=== PATIENT | female | born 1945 | race Caucasian/White ===

== ENCOUNTER 2017-12-17 10:19 | Inpatient (IN) | payer MEDICARE, OTHER, MEDICAID ==
[2017-12-17 10:47] LABS: ADD MAN DIFF? NO
[2017-12-17 10:49] LABS: WHITE BLOOD COUNT 9.6 10^3/ul (4.8-10.8)
[2017-12-17 10:49] LABS: BASOPHILS % 0.4 % (0.0-2.0); EOSINOPHILS # 0.1 10^3/ul (0.0-0.5); EOSINOPHILS % 1.3 % (0.0-7.0); HEMOGLOBIN 12.6 g/dl (12.0-16.0); LYMPHOCYTES # 3.1 10^3/ul (0.8-2.9); LYMPHOCYTES % 32.6 % (15.0-51.0); MEAN CORPUSCULAR HEMOGLOBIN 30.3 pg (29.0-33.0); MEAN CORPUSCULAR HGB CONC 31.5 g/dl (32.0-37.0); MEAN CORPUSCULAR VOLUME 96.2 fl (82.0-101.0); MEAN PLATELET VOLUME 10.6 fl (7.4-10.4); MONOCYTE # 0.8 10^3/ul (0.3-0.9); MONOCYTES % 8.2 % (0.0-11.0); NEUTROPHIL # 5.5 10^3/ul (1.6-7.5); PLATELET COUNT 323 10^3/UL (140-415); RED BLOOD COUNT 4.16 10^6/ul (4.20-5.40); RED CELL DISTRIBUTION WIDTH 14.4 % (11.5-14.5)
[2017-12-17 11:04] LABS: ADD UMIC NO; UR ASCORBIC ACID NEGATIVE (NEGATIVE); UR BILIRUBIN (Dip) NEGATIVE (NEGATIVE); UR BLOOD (Dip) NEGATIVE (NEGATIVE); UR CLARITY SLIGHTLY CLOUDY (CLEAR); UR COLOR YELLOW (YELLOW); UR GLUCOSE (Dip) 2+ mg/dL (NEGATIVE); UR KETONES (Dip) NEGATIVE (NEGATIVE); UR LEUKOCYTE ESTERASE (Dip) NEGATIVE Leu/ul (NEGATIVE); UR NITRITE (Dip) NEGATIVE (NEGATIVE); UR RBC 0 /HPF (0-5); UR SPECIFIC GRAVITY (Dip) 1.012 (1.003-1.030); UR TOTAL PROTEIN (Dip) NEGATIVE (NEGATIVE); UR UROBILINOGEN (Dip) NEGATIVE (NEGATIVE); UR WBC 1 /HPF (0-5)
[2017-12-17] MEDS: SODIUM CHLORIDE 0.9% 1L BAG IV* (11:09)
[2017-12-17 11:12] LABS: INR 1.06; PROTIME 13.9 Sec (11.9-14.9); PT RATIO 1.1
[2017-12-17 11:14] LABS: PARTIAL THROMBOPLASTIN TIME 30.7 Sec (25.0-35.0)
[2017-12-17 11:58] LABS: POTASSIUM 5.2 mmol/L (3.5-5.1); SODIUM 141 mmol/L (135-144)
[2017-12-17 11:59] LABS: ALANINE AMINOTRANSFERASE 18 IU/L (13-69); ALBUMIN 3.7 g/dl (3.3-4.9); ALBUMIN/GLOBULIN RATIO 0.97; ALKALINE PHOSPHATASE 130 IU/L (42-121); ANION GAP 16 (8-16); ASPARTATE AMINO TRANSFERASE 34 IU/L (15-46); BILIRUBIN,INDIRECT 0.3 mg/dl (0-1.1); BILIRUBIN,TOTAL 0.3 mg/dl (0.2-1.3); BLOOD UREA NITROGEN 41 mg/dl (7-20); CALCIUM 8.9 mg/dl (8.4-10.2); CARBON DIOXIDE 17 mmol/L (21-31); CHLORIDE 113 mmol/L (97-110); CREATINE KINASE 75 IU/L (23-200); CREATININE 1.03 mg/dl (0.44-1.00); GLUCOSE 174 mg/dl (70-220); TOTAL PROTEIN 7.5 g/dl (6.1-8.1)
[2017-12-17 11:59] LABS: LACTIC ACID 1.6 mmol/L (0.5-2.0)
[2017-12-17 12:10] LABS: CK-MB 2.28 ng/ml (0.0-2.4)
[2017-12-17 12:14] LABS: TROPONIN-I < 0.012 ng/ml (0.000-0.120)
[2017-12-17 14:11] LABS: LACTIC ACID 1.2 mmol/L (0.5-2.0)
[2017-12-17] MEDS ORDERED: ACETAMINOPHEN 325 MG TAB PO (15:00)
[2017-12-17] MEDS ORDERED: ONDANSETRON 4 MG INJ IV (15:00)
[2017-12-17] MEDS: DEXTROSE 5%-0.45% NACL 1,000 ML IV (15:34)
[2017-12-17] MEDS ORDERED: DOCUSATE SODIUM 100 MG CAP PO (16:00)
[2017-12-17] MEDS ORDERED: MAGNESIUM HYDROXIDE 30ML CUP PO (16:00)
[2017-12-17] MEDS ORDERED: NACL 0.9% 3 ML SYG IV (16:00)
[2017-12-17 16:43] LABS: HEMOGLOBIN A1C 8.7 % (0-5.9)
[2017-12-17] MEDS ORDERED: GLUCOSE GEL 15 GRAM TUBE PO ×2 (17:00)
[2017-12-17] MEDS ORDERED: DEXTROSE 50% 50 ML SYRINGE IV ×2 (17:00)
[2017-12-17] MEDS ORDERED: GLUCAGON 1 MG INJ IM (17:00)
[2017-12-17] MEDS ORDERED: GLUCOSE GEL 15 GRAM TUBE BUCCAL (17:00)
[2017-12-17] MEDS: INSULIN ASPART [NOVOLOG] 3 ML PEN SC ×3 (18:00→21:00)
[2017-12-17] MEDS: CEFTRIAXONE 1 GM/50 ML (PMX) 50 ML IVPB (18:11)
[2017-12-17 22:45] LABS: LACTIC ACID 1.5 mmol/L (0.5-2.0)
[2017-12-17] MEDS: PREGABALIN 75 MG CAP PO (23:05)
[2017-12-17] MEDS: EZETIMIBE 10 MG TAB PO (23:05)
[2017-12-17] MEDS: RANOLAZINE (SR) 500 MG TAB PO (23:07)
[2017-12-17] MEDS: ATORVASTATIN 40 MG TAB PO (23:29)
[2017-12-17] MEDS: INSULIN GLARGINE [LANtus] 3 ML PEN SC (23:40)
[2017-12-18] MEDS: PANTOPRAZOLE (EC) 40 MG TAB PO (06:47)
[2017-12-18] MEDS: INSULIN ASPART [NOVOLOG] 3 ML PEN SC ×7 (07:55→20:39)
[2017-12-18 08:04] LABS: ADD MAN DIFF? NO
[2017-12-18 08:09] LABS: BASOPHIL # 0.1 10^3/ul (0.0-0.1); BASOPHILS % 0.4 % (0.0-2.0); EOSINOPHILS # 0.1 10^3/ul (0.0-0.5); EOSINOPHILS % 0.7 % (0.0-7.0); HEMATOCRIT 35.5 % (37.0-47.0); HEMOGLOBIN 11.4 g/dl (12.0-16.0); LYMPHOCYTES # 3.9 10^3/ul (0.8-2.9); LYMPHOCYTES % 31.9 % (15.0-51.0); MEAN CORPUSCULAR HEMOGLOBIN 30.2 pg (29.0-33.0); MEAN CORPUSCULAR HGB CONC 32.1 g/dl (32.0-37.0); MEAN CORPUSCULAR VOLUME 94.2 fl (82.0-101.0); MEAN PLATELET VOLUME 10.7 fl (7.4-10.4); MONOCYTE # 1.2 10^3/ul (0.3-0.9); NEUTROPHIL # 6.9 10^3/ul (1.6-7.5); NEUTROPHILS % 56.7 % (39.0-77.0); PLATELET COUNT 292 10^3/UL (140-415); RED BLOOD COUNT 3.77 10^6/ul (4.20-5.40); RED CELL DISTRIBUTION WIDTH 14.6 % (11.5-14.5)
[2017-12-18 08:09] LABS: WHITE BLOOD COUNT 12.2 10^3/ul (4.8-10.8)
[2017-12-18 08:35] LABS: ALBUMIN 3.2 g/dl (3.3-4.9); ANION GAP 14 (8-16); BLOOD UREA NITROGEN 39 mg/dl (7-20); CALCIUM 8.5 mg/dl (8.4-10.2); CARBON DIOXIDE 19 mmol/L (21-31); CHLORIDE 114 mmol/L (97-110); CREATININE 1.15 mg/dl (0.44-1.00); GLUCOSE 132 mg/dl (70-220); MAGNESIUM 1.8 mg/dl (1.7-2.5); PHOSPHORUS 3.5 mg/dl (2.5-4.9); POTASSIUM 5.2 mmol/L (3.5-5.1); SODIUM 142 mmol/L (135-144)
[2017-12-18] MEDS: RANOLAZINE (SR) 500 MG TAB PO ×2 (08:46→20:43)
[2017-12-18] MEDS: PRASUGREL HYDROCHLORIDE 10 MG TABLET PO (08:46)
[2017-12-18] MEDS: ASPIRIN 81 MG TAB PO (08:46)
[2017-12-18] MEDS: MULTIVITAMINS THERAPEUTIC TAB PO (08:47)
[2017-12-18] MEDS: PREGABALIN 75 MG CAP PO ×2 (08:47→20:43)
[2017-12-18] MEDS: VALSARTAN 160 MG TAB PO (08:55)
[2017-12-18] MEDS: HYDROCHLOROTHIAZIDE 25 MG TAB PO (08:55)
[2017-12-18] MEDS: ACETAMINOPHEN 325 MG TAB PO (14:03)
[2017-12-18] MEDS: SOD CHLORIDE 0.45% 1,000 ML IV (14:58)
[2017-12-18] MEDS: CYCLOBENZAPRINE 10 MG TAB PO ×2 (15:30→17:20)
[2017-12-18] MEDS: CEFTRIAXONE 1 GM/50 ML (PMX) 50 ML IVPB (17:17)
[2017-12-18] MEDS: DOCUSATE SODIUM 100 MG CAP PO (20:43)
[2017-12-18] MEDS: ATORVASTATIN 40 MG TAB PO (20:43)
[2017-12-18] MEDS: EZETIMIBE 10 MG TAB PO (20:44)
[2017-12-18] MEDS: INSULIN GLARGINE [LANtus] 3 ML PEN SC (21:00)
[2017-12-18] MEDS: HYDROCODONE/APAP (5/325) TAB PO (22:30)
[2017-12-19] MEDS: PANTOPRAZOLE (EC) 40 MG TAB PO (05:59)
[2017-12-19 07:48] LABS: ADD MAN DIFF? NO
[2017-12-19 07:52] LABS: ABNORMAL IP MESSAGE 1; BASOPHIL # 0.1 10^3/ul (0.0-0.1); BASOPHILS % 0.6 % (0.0-2.0); EOSINOPHILS # 0.2 10^3/ul (0.0-0.5); EOSINOPHILS % 1.9 % (0.0-7.0); HEMATOCRIT 35.4 % (37.0-47.0); HEMOGLOBIN 11.1 g/dl (12.0-16.0); LYMPHOCYTES % 25.9 % (15.0-51.0); MEAN CORPUSCULAR HEMOGLOBIN 30.1 pg (29.0-33.0); MEAN CORPUSCULAR HGB CONC 31.4 g/dl (32.0-37.0); MEAN CORPUSCULAR VOLUME 95.9 fl (82.0-101.0); MEAN PLATELET VOLUME 11.1 fl (7.4-10.4); MONOCYTE # 1.7 10^3/ul (0.3-0.9); MONOCYTES % 14.4 % (0.0-11.0); NEUTROPHIL # 6.5 10^3/ul (1.6-7.5); NEUTROPHILS % 56.8 % (39.0-77.0); PLATELET COUNT 273 10^3/UL (140-415); RED BLOOD COUNT 3.69 10^6/ul (4.20-5.40); RED CELL DISTRIBUTION WIDTH 14.7 % (11.5-14.5)
[2017-12-19 07:52] LABS: WHITE BLOOD COUNT 11.5 10^3/ul (4.8-10.8)
[2017-12-19 07:56] LABS: POSITIVE DIFF @See below
[2017-12-19 08:12] LABS: ALBUMIN 3.1 g/dl (3.3-4.9); ANION GAP 16 (8-16); BLOOD UREA NITROGEN 41 mg/dl (7-20); CALCIUM 8.5 mg/dl (8.4-10.2); CARBON DIOXIDE 20 mmol/L (21-31); CHLORIDE 107 mmol/L (97-110); CREATININE 1.32 mg/dl (0.44-1.00); GLUCOSE 190 mg/dl (70-220); MAGNESIUM 1.6 mg/dl (1.7-2.5); PHOSPHORUS 3.8 mg/dl (2.5-4.9); SODIUM 137 mmol/L (135-144)
[2017-12-19 08:16] LABS: POTASSIUM 6.2 mmol/L (3.5-5.1)
[2017-12-19] MEDS: MULTIVITAMINS THERAPEUTIC TAB PO (08:38)
[2017-12-19] MEDS: VALSARTAN 160 MG TAB PO (08:39)
[2017-12-19] MEDS: DOCUSATE SODIUM 100 MG CAP PO ×2 (08:39→22:23)
[2017-12-19] MEDS: RANOLAZINE (SR) 500 MG TAB PO ×2 (08:40→22:22)
[2017-12-19] MEDS: ASPIRIN 81 MG TAB PO (08:40)
[2017-12-19] MEDS: PRASUGREL HYDROCHLORIDE 10 MG TABLET PO (08:40)
[2017-12-19] MEDS: INSULIN ASPART [NOVOLOG] 3 ML PEN SC ×7 (08:47→22:23)
[2017-12-19] MEDS: PREGABALIN 75 MG CAP PO ×3 (08:50→22:22)
[2017-12-19] MEDS: ALBUTEROL 0.083% (NEB) 2.5 MG/3 ML AMP HHN (09:50)
[2017-12-19] MEDS: SOD CHLORIDE 0.9% 1,000 ML IV ×2 (10:16→22:23)
[2017-12-19] MEDS: NA POLYST SULFON 15 GM/60 ML BTL PO ×2 (10:17→17:49)
[2017-12-19] MEDS: NA BICARBONATE 8.4% 50 ML SYG IV (10:17)
[2017-12-19 10:23] LABS: POTASSIUM 6.3 mmol/L (3.5-5.1)
[2017-12-19] MEDS: CALCIUM GLUCONATE 10% 1 GM in DEXTROSE 5% 100 ML IVPB (10:24)
[2017-12-19] MEDS: MAGNESIUM SULFATE 2 GM/50 ML 50 ML IVPB (11:41)
[2017-12-19] MEDS ORDERED: CYCLOBENZAPRINE 10 MG TAB PO (14:00)
[2017-12-19 15:51] LABS: ANION GAP 15 (8-16); BLOOD UREA NITROGEN 42 mg/dl (7-20); CALCIUM 8.7 mg/dl (8.4-10.2); CARBON DIOXIDE 21 mmol/L (21-31); CHLORIDE 109 mmol/L (97-110); GLUCOSE 100 mg/dl (70-220); POTASSIUM 5.3 mmol/L (3.5-5.1); SODIUM 140 mmol/L (135-144)
[2017-12-19] MEDS: ATORVASTATIN 40 MG TAB PO (22:21)
[2017-12-19] MEDS: ACETAMINOPHEN 325 MG TAB PO (22:22)
[2017-12-19] MEDS: EZETIMIBE 10 MG TAB PO (22:23)
[2017-12-19] MEDS: INSULIN GLARGINE [LANtus] 3 ML PEN SC (22:33)
[2017-12-20] MEDS: SOD CHLORIDE 0.9% 1,000 ML IV (05:46)
[2017-12-20] MEDS: PANTOPRAZOLE (EC) 40 MG TAB PO (05:46)
[2017-12-20 07:39] LABS: ADD MAN DIFF? NO
[2017-12-20 07:43] LABS: BASOPHIL # 0.1 10^3/ul (0.0-0.1); BASOPHILS % 0.5 % (0.0-2.0); EOSINOPHILS # 0.4 10^3/ul (0.0-0.5); EOSINOPHILS % 3.7 % (0.0-7.0); HEMATOCRIT 33.1 % (37.0-47.0); HEMOGLOBIN 10.3 g/dl (12.0-16.0); LYMPHOCYTES # 3.1 10^3/ul (0.8-2.9); LYMPHOCYTES % 33.2 % (15.0-51.0); MEAN CORPUSCULAR HEMOGLOBIN 29.9 pg (29.0-33.0); MEAN CORPUSCULAR HGB CONC 31.1 g/dl (32.0-37.0); MEAN CORPUSCULAR VOLUME 96.2 fl (82.0-101.0); MEAN PLATELET VOLUME 11.1 fl (7.4-10.4); MONOCYTE # 1.3 10^3/ul (0.3-0.9); MONOCYTES % 13.3 % (0.0-11.0); NEUTROPHIL # 4.6 10^3/ul (1.6-7.5); NEUTROPHILS % 49.1 % (39.0-77.0); PLATELET COUNT 233 10^3/UL (140-415); RED BLOOD COUNT 3.44 10^6/ul (4.20-5.40); RED CELL DISTRIBUTION WIDTH 14.6 % (11.5-14.5)
[2017-12-20 07:43] LABS: WHITE BLOOD COUNT 9.4 10^3/ul (4.8-10.8)
[2017-12-20] MEDS: INSULIN ASPART [NOVOLOG] 3 ML PEN SC ×7 (07:58→20:41)
[2017-12-20 08:04] LABS: ANION GAP 15 (8-16); BLOOD UREA NITROGEN 43 mg/dl (7-20); CALCIUM 8.1 mg/dl (8.4-10.2); CARBON DIOXIDE 23 mmol/L (21-31); CHLORIDE 106 mmol/L (97-110); CREATININE 1.38 mg/dl (0.44-1.00); GLUCOSE 201 mg/dl (70-220); PHOSPHORUS 3.5 mg/dl (2.5-4.9); POTASSIUM 4.9 mmol/L (3.5-5.1); SODIUM 139 mmol/L (135-144)
[2017-12-20 08:05] LABS: ALBUMIN 2.7 g/dl (3.3-4.9); ANION GAP 15 (8-16); BLOOD UREA NITROGEN 42 mg/dl (7-20); CALCIUM 8.1 mg/dl (8.4-10.2); CARBON DIOXIDE 23 mmol/L (21-31); CHLORIDE 106 mmol/L (97-110); CREATININE 1.39 mg/dl (0.44-1.00); GLUCOSE 202 mg/dl (70-220); MAGNESIUM 2.1 mg/dl (1.7-2.5); PHOSPHORUS 3.5 mg/dl (2.5-4.9); POTASSIUM 4.9 mmol/L (3.5-5.1); SODIUM 139 mmol/L (135-144)
[2017-12-20] MEDS: DOCUSATE SODIUM 100 MG CAP PO ×2 (09:17→20:22)
[2017-12-20] MEDS: MULTIVITAMINS THERAPEUTIC TAB PO (09:18)
[2017-12-20] MEDS: RANOLAZINE (SR) 500 MG TAB PO ×2 (09:18→20:22)
[2017-12-20] MEDS: PRASUGREL HYDROCHLORIDE 10 MG TABLET PO (09:18)
[2017-12-20] MEDS: ASPIRIN 81 MG TAB PO (09:18)
[2017-12-20] MEDS: PREGABALIN 75 MG CAP PO ×3 (09:20→20:22)
[2017-12-20 16:25] LABS: ADD UMIC NO; UR ASCORBIC ACID NEGATIVE (NEGATIVE); UR BILIRUBIN (Dip) NEGATIVE (NEGATIVE); UR BLOOD (Dip) NEGATIVE (NEGATIVE); UR CLARITY CLEAR (CLEAR); UR COLOR YELLOW (YELLOW); UR GLUCOSE (Dip) NEGATIVE (NEGATIVE); UR KETONES (Dip) NEGATIVE (NEGATIVE); UR LEUKOCYTE ESTERASE (Dip) NEGATIVE Leu/ul (NEGATIVE); UR NITRITE (Dip) NEGATIVE (NEGATIVE); UR SPECIFIC GRAVITY (Dip) 1.013 (1.003-1.030); UR TOTAL PROTEIN (Dip) NEGATIVE (NEGATIVE); UR UROBILINOGEN (Dip) NEGATIVE (NEGATIVE)
[2017-12-20 16:37] LABS: SODIUM,URINE RANDOM 69 mmol/L (30-90)
[2017-12-20 16:37] LABS: CREATININE,URINE RANDOM 57.92 mg/dl (20-320)
[2017-12-20] MEDS: ATORVASTATIN 40 MG TAB PO (20:22)
[2017-12-20] MEDS: EZETIMIBE 10 MG TAB PO (20:22)
[2017-12-20] MEDS: INSULIN GLARGINE [LANtus] 3 ML PEN SC (20:40)
[2017-12-21] MEDS: SOD CHLORIDE 0.9% 1,000 ML IV ×2 (03:41→12:00)
[2017-12-21] MEDS: PANTOPRAZOLE (EC) 40 MG TAB PO (06:08)
[2017-12-21] MEDS: INSULIN ASPART [NOVOLOG] 3 ML PEN SC ×7 (08:03→20:32)
[2017-12-21] MEDS: DOCUSATE SODIUM 100 MG CAP PO ×2 (08:17→20:21)
[2017-12-21] MEDS: ASPIRIN 81 MG TAB PO (08:17)
[2017-12-21] MEDS: PRASUGREL HYDROCHLORIDE 10 MG TABLET PO (08:17)
[2017-12-21] MEDS: RANOLAZINE (SR) 500 MG TAB PO ×2 (08:17→20:21)
[2017-12-21] MEDS: PREGABALIN 75 MG CAP PO ×3 (08:17→20:25)
[2017-12-21] MEDS: MULTIVITAMINS THERAPEUTIC TAB PO (08:18)
[2017-12-21 08:48] LABS: ADD MAN DIFF? NO
[2017-12-21 09:02] LABS: WHITE BLOOD COUNT 23.2 10^3/ul (4.8-10.8)
[2017-12-21 09:02] LABS: ABNORMAL IP MESSAGE 1; BASOPHIL # 0.1 10^3/ul (0.0-0.1); BASOPHILS % 0.2 % (0.0-2.0); EOSINOPHILS # 0.2 10^3/ul (0.0-0.5); EOSINOPHILS % 0.8 % (0.0-7.0); HEMATOCRIT 30.9 % (37.0-47.0); LYMPHOCYTES # 4.1 10^3/ul (0.8-2.9); LYMPHOCYTES % 17.5 % (15.0-51.0); MEAN CORPUSCULAR HEMOGLOBIN 30.5 pg (29.0-33.0); MEAN CORPUSCULAR HGB CONC 32.4 g/dl (32.0-37.0); MEAN CORPUSCULAR VOLUME 94.2 fl (82.0-101.0); MEAN PLATELET VOLUME 11.3 fl (7.4-10.4); MONOCYTE # 2.1 10^3/ul (0.3-0.9); MONOCYTES % 9.1 % (0.0-11.0); NEUTROPHIL # 16.7 10^3/ul (1.6-7.5); NEUTROPHILS % 71.9 % (39.0-77.0); PLATELET COUNT 216 10^3/UL (140-415); RED BLOOD COUNT 3.28 10^6/ul (4.20-5.40); RED CELL DISTRIBUTION WIDTH 14.6 % (11.5-14.5)
[2017-12-21 09:03] LABS: POSITIVE DIFF @See below
[2017-12-21 09:30] LABS: ANION GAP 14 (8-16); BLOOD UREA NITROGEN 35 mg/dl (7-20); CALCIUM 8.5 mg/dl (8.4-10.2); CARBON DIOXIDE 21 mmol/L (21-31); CHLORIDE 109 mmol/L (97-110); CREATININE 1.19 mg/dl (0.44-1.00); GLUCOSE 180 mg/dl (70-220); MAGNESIUM 1.5 mg/dl (1.7-2.5); SODIUM 139 mmol/L (135-144)
[2017-12-21] MEDS: MAGNESIUM SULFATE 2 GM/50 ML 50 ML IVPB (10:51)
[2017-12-21] MEDS: ATORVASTATIN 40 MG TAB PO (20:21)
[2017-12-21] MEDS: EZETIMIBE 10 MG TAB PO (20:21)
[2017-12-21] MEDS: INSULIN GLARGINE [LANtus] 3 ML PEN SC (20:32)
[2017-12-22] MEDS: PANTOPRAZOLE (EC) 40 MG TAB PO (06:17)
[2017-12-22 07:33] LABS: ANION GAP 12 (8-16); BLOOD UREA NITROGEN 34 mg/dl (7-20); CALCIUM 8.6 mg/dl (8.4-10.2); CARBON DIOXIDE 23 mmol/L (21-31); CHLORIDE 111 mmol/L (97-110); CREATININE 1.12 mg/dl (0.44-1.00); GLUCOSE 167 mg/dl (70-220); MAGNESIUM 1.7 mg/dl (1.7-2.5); PHOSPHORUS 3.4 mg/dl (2.5-4.9); SODIUM 141 mmol/L (135-144)
[2017-12-22] MEDS: INSULIN ASPART [NOVOLOG] 3 ML PEN SC ×7 (08:57→20:36)
[2017-12-22] MEDS: PREGABALIN 75 MG CAP PO ×2 (09:00→20:45)
[2017-12-22] MEDS: ASPIRIN 81 MG TAB PO (09:47)
[2017-12-22] MEDS: RANOLAZINE (SR) 500 MG TAB PO ×2 (09:47→20:33)
[2017-12-22] MEDS: DOCUSATE SODIUM 100 MG CAP PO ×2 (09:47→20:33)
[2017-12-22] MEDS: PRASUGREL HYDROCHLORIDE 10 MG TABLET PO (09:47)
[2017-12-22] MEDS: MULTIVITAMINS THERAPEUTIC TAB PO (09:48)
[2017-12-22 11:07] LABS: ADD MAN DIFF? NO
[2017-12-22 11:09] LABS: ABNORMAL IP MESSAGE 1; BASOPHIL # 0.1 10^3/ul (0.0-0.1); BASOPHILS % 0.2 % (0.0-2.0); EOSINOPHILS # 0.3 10^3/ul (0.0-0.5); EOSINOPHILS % 1.5 % (0.0-7.0); HEMATOCRIT 30.4 % (37.0-47.0); HEMOGLOBIN 9.7 g/dl (12.0-16.0); LYMPHOCYTES # 3.5 10^3/ul (0.8-2.9); LYMPHOCYTES % 15.4 % (15.0-51.0); MEAN CORPUSCULAR HEMOGLOBIN 30.6 pg (29.0-33.0); MEAN CORPUSCULAR HGB CONC 31.9 g/dl (32.0-37.0); MEAN CORPUSCULAR VOLUME 95.9 fl (82.0-101.0); MEAN PLATELET VOLUME 10.9 fl (7.4-10.4); MONOCYTE # 2.1 10^3/ul (0.3-0.9); MONOCYTES % 9.1 % (0.0-11.0); NEUTROPHIL # 16.6 10^3/ul (1.6-7.5); NEUTROPHILS % 73.1 % (39.0-77.0); PLATELET COUNT 209 10^3/UL (140-415); RED BLOOD COUNT 3.17 10^6/ul (4.20-5.40); RED CELL DISTRIBUTION WIDTH 14.6 % (11.5-14.5)
[2017-12-22 11:09] LABS: WHITE BLOOD COUNT 22.7 10^3/ul (4.8-10.8)
[2017-12-22 11:28] LABS: POSITIVE DIFF @See below
[2017-12-22] MEDS: ALBUTEROL 0.083% (NEB) 2.5 MG/3 ML AMP HHN (11:49)
[2017-12-22] MEDS: LEVOFLOXACIN 500MG/D5W (PMX) 100 ML IVPB (13:32)
[2017-12-22] MEDS: ATORVASTATIN 40 MG TAB PO (20:33)
[2017-12-22] MEDS: EZETIMIBE 10 MG TAB PO (20:33)
[2017-12-22] MEDS: INSULIN GLARGINE [LANtus] 3 ML PEN SC (20:39)
[2017-12-23] MEDS: PANTOPRAZOLE (EC) 40 MG TAB PO (05:40)
[2017-12-23] MEDS: INSULIN ASPART [NOVOLOG] 3 ML PEN SC ×7 (07:47→21:00)
[2017-12-23] MEDS: DOCUSATE SODIUM 100 MG CAP PO ×2 (08:15→21:21)
[2017-12-23] MEDS: MULTIVITAMINS THERAPEUTIC TAB PO (08:15)
[2017-12-23] MEDS: RANOLAZINE (SR) 500 MG TAB PO ×2 (08:15→22:27)
[2017-12-23] MEDS: PRASUGREL HYDROCHLORIDE 10 MG TABLET PO (08:15)
[2017-12-23] MEDS: ASPIRIN 81 MG TAB PO (08:15)
[2017-12-23] MEDS: PREGABALIN 75 MG CAP PO ×2 (08:16→21:21)
[2017-12-23 08:44] LABS: ADD MAN DIFF? NO
[2017-12-23 08:52] LABS: WHITE BLOOD COUNT 18.9 10^3/ul (4.8-10.8)
[2017-12-23 08:52] LABS: ABNORMAL IP MESSAGE 1; BASOPHILS % 0.2 % (0.0-2.0); EOSINOPHILS # 0.4 10^3/ul (0.0-0.5); HEMATOCRIT 30.5 % (37.0-47.0); HEMOGLOBIN 9.7 g/dl (12.0-16.0); LYMPHOCYTES # 3.1 10^3/ul (0.8-2.9); LYMPHOCYTES % 16.6 % (15.0-51.0); MEAN CORPUSCULAR HEMOGLOBIN 30.3 pg (29.0-33.0); MEAN CORPUSCULAR HGB CONC 31.8 g/dl (32.0-37.0); MEAN CORPUSCULAR VOLUME 95.3 fl (82.0-101.0); MEAN PLATELET VOLUME 11.2 fl (7.4-10.4); MONOCYTE # 1.9 10^3/ul (0.3-0.9); MONOCYTES % 10.1 % (0.0-11.0); NEUTROPHIL # 13.3 10^3/ul (1.6-7.5); NEUTROPHILS % 70.3 % (39.0-77.0); PLATELET COUNT 239 10^3/UL (140-415); RED CELL DISTRIBUTION WIDTH 14.7 % (11.5-14.5)
[2017-12-23 09:01] LABS: POSITIVE DIFF @See below
[2017-12-23 09:27] LABS: ANION GAP 9 (8-16); BLOOD UREA NITROGEN 27 mg/dl (7-20); CARBON DIOXIDE 25 mmol/L (21-31); CHLORIDE 112 mmol/L (97-110); CREATININE 1.21 mg/dl (0.44-1.00); GLUCOSE 85 mg/dl (70-220); MAGNESIUM 1.3 mg/dl (1.7-2.5); PHOSPHORUS 3.3 mg/dl (2.5-4.9); SODIUM 141 mmol/L (135-144)
[2017-12-23 09:46] LABS: POTASSIUM 5.3 mmol/L (3.5-5.1)
[2017-12-23] MEDS: MAGNESIUM SULFATE 2 GM/50 ML 50 ML IVPB (12:47)
[2017-12-23] MEDS: NA POLYST SULFON 15 GM/60 ML BTL PO (12:48)
[2017-12-23] MEDS: LEVOFLOXACIN 250MG/D5W (PMX) 50 ML IVPB (15:41)
[2017-12-23] MEDS: ATORVASTATIN 40 MG TAB PO (21:21)
[2017-12-23] MEDS: INSULIN GLARGINE [LANtus] 3 ML PEN SC (21:24)
[2017-12-23] MEDS: EZETIMIBE 10 MG TAB PO (22:27)
[2017-12-24 06:10] LABS: ADD MAN DIFF? NO
[2017-12-24 06:15] LABS: ABNORMAL IP MESSAGE 1; BASOPHIL # 0.1 10^3/ul (0.0-0.1); BASOPHILS % 0.5 % (0.0-2.0); EOSINOPHILS # 0.5 10^3/ul (0.0-0.5); EOSINOPHILS % 3.6 % (0.0-7.0); HEMATOCRIT 28.1 % (37.0-47.0); HEMOGLOBIN 9.2 g/dl (12.0-16.0); LYMPHOCYTES # 4.5 10^3/ul (0.8-2.9); LYMPHOCYTES % 31.6 % (15.0-51.0); MEAN CORPUSCULAR HGB CONC 32.7 g/dl (32.0-37.0); MEAN CORPUSCULAR VOLUME 94.6 fl (82.0-101.0); MEAN PLATELET VOLUME 10.9 fl (7.4-10.4); MONOCYTE # 1.8 10^3/ul (0.3-0.9); MONOCYTES % 12.5 % (0.0-11.0); NEUTROPHIL # 7.3 10^3/ul (1.6-7.5); NEUTROPHILS % 51.2 % (39.0-77.0); PLATELET COUNT 237 10^3/UL (140-415); RED BLOOD COUNT 2.97 10^6/ul (4.20-5.40); RED CELL DISTRIBUTION WIDTH 14.6 % (11.5-14.5)
[2017-12-24 06:15] LABS: WHITE BLOOD COUNT 14.2 10^3/ul (4.8-10.8)
[2017-12-24] MEDS: PANTOPRAZOLE (EC) 40 MG TAB PO (06:30)
[2017-12-24 06:48] LABS: POSITIVE DIFF @See below
[2017-12-24 07:18] LABS: ANION GAP 12 (8-16); BLOOD UREA NITROGEN 25 mg/dl (7-20); CALCIUM 8.4 mg/dl (8.4-10.2); CARBON DIOXIDE 26 mmol/L (21-31); CHLORIDE 110 mmol/L (97-110); CREATININE 1.25 mg/dl (0.44-1.00); GLUCOSE 98 mg/dl (70-220); MAGNESIUM 1.8 mg/dl (1.7-2.5); POTASSIUM 4.6 mmol/L (3.5-5.1); SODIUM 143 mmol/L (135-144)
[2017-12-24] MEDS: INSULIN ASPART [NOVOLOG] 3 ML PEN SC ×7 (07:54→21:00)
[2017-12-24] MEDS: PREGABALIN 75 MG CAP PO ×2 (08:14→21:10)
[2017-12-24] MEDS: ASPIRIN 81 MG TAB PO (08:14)
[2017-12-24] MEDS: PRASUGREL HYDROCHLORIDE 10 MG TABLET PO (08:14)
[2017-12-24] MEDS: DOCUSATE SODIUM 100 MG CAP PO ×2 (08:14→21:10)
[2017-12-24] MEDS: MULTIVITAMINS THERAPEUTIC TAB PO (08:14)
[2017-12-24] MEDS: RANOLAZINE (SR) 500 MG TAB PO ×2 (08:15→21:11)
[2017-12-24] MEDS: LEVOFLOXACIN 250MG/D5W (PMX) 50 ML IVPB (14:14)
[2017-12-24] MEDS: ATORVASTATIN 40 MG TAB PO (21:11)
[2017-12-24] MEDS: EZETIMIBE 10 MG TAB PO (21:11)
[2017-12-24] MEDS: INSULIN GLARGINE [LANtus] 3 ML PEN SC (21:14)
[2017-12-25] MEDS: PANTOPRAZOLE (EC) 40 MG TAB PO (06:24)
[2017-12-25] MEDS: INSULIN ASPART [NOVOLOG] 3 ML PEN SC ×7 (08:00→20:51)
[2017-12-25] MEDS: ASPIRIN 81 MG TAB PO (08:53)
[2017-12-25] MEDS: PREGABALIN 75 MG CAP PO ×2 (08:53→20:47)
[2017-12-25] MEDS: MULTIVITAMINS THERAPEUTIC TAB PO (08:53)
[2017-12-25] MEDS: DOCUSATE SODIUM 100 MG CAP PO ×2 (08:54→20:47)
[2017-12-25] MEDS: PRASUGREL HYDROCHLORIDE 10 MG TABLET PO (08:54)
[2017-12-25] MEDS: RANOLAZINE (SR) 500 MG TAB PO ×2 (08:55→20:47)
[2017-12-25 13:03] LABS: ADD MAN DIFF? NO
[2017-12-25 13:06] LABS: ABNORMAL IP MESSAGE 1; BASOPHIL # 0.1 10^3/ul (0.0-0.1); BASOPHILS % 0.5 % (0.0-2.0); EOSINOPHILS # 0.4 10^3/ul (0.0-0.5); EOSINOPHILS % 3.5 % (0.0-7.0); HEMATOCRIT 30.6 % (37.0-47.0); HEMOGLOBIN 9.8 g/dl (12.0-16.0); LYMPHOCYTES # 3.4 10^3/ul (0.8-2.9); LYMPHOCYTES % 28.3 % (15.0-51.0); MEAN CORPUSCULAR HEMOGLOBIN 30.9 pg (29.0-33.0); MEAN CORPUSCULAR VOLUME 96.5 fl (82.0-101.0); MEAN PLATELET VOLUME 10.9 fl (7.4-10.4); MONOCYTE # 1.6 10^3/ul (0.3-0.9); MONOCYTES % 12.8 % (0.0-11.0); NEUTROPHIL # 6.5 10^3/ul (1.6-7.5); PLATELET COUNT 275 10^3/UL (140-415); RED BLOOD COUNT 3.17 10^6/ul (4.20-5.40); RED CELL DISTRIBUTION WIDTH 14.3 % (11.5-14.5)
[2017-12-25 13:06] LABS: WHITE BLOOD COUNT 12.1 10^3/ul (4.8-10.8)
[2017-12-25 13:08] LABS: POSITIVE DIFF @See below
[2017-12-25 13:33] LABS: ANION GAP 11 (8-16)
[2017-12-25 13:43] LABS: ALBUMIN 3.1 g/dl (3.3-4.9); BLOOD UREA NITROGEN 23 mg/dl (7-20); CALCIUM 8.4 mg/dl (8.4-10.2); CARBON DIOXIDE 25 mmol/L (21-31); CHLORIDE 108 mmol/L (97-110); CREATININE 1.09 mg/dl (0.44-1.00); GLUCOSE 93 mg/dl (70-220); PHOSPHORUS 3.5 mg/dl (2.5-4.9); POTASSIUM 5.1 mmol/L (3.5-5.1); SODIUM 139 mmol/L (135-144)
[2017-12-25] MEDS: LEVOFLOXACIN 250MG/D5W (PMX) 50 ML IVPB (14:15)
[2017-12-25 16:32] LABS: CREATININE, RANDOM URINE 66 mg/dL (20-320); MICROALBUMIN <0.2 mg/dL; MICROALBUMIN/CREATININE RATIO NOTE (<30)
[2017-12-25] MEDS: ATORVASTATIN 40 MG TAB PO (20:47)
[2017-12-25] MEDS: EZETIMIBE 10 MG TAB PO (20:47)
[2017-12-25] MEDS: INSULIN GLARGINE [LANtus] 3 ML PEN SC (20:55)
[2017-12-26] MEDS: PANTOPRAZOLE (EC) 40 MG TAB PO (05:29)
[2017-12-26 06:29] LABS: ADD MAN DIFF? NO
[2017-12-26 06:35] LABS: ABNORMAL IP MESSAGE 1; BASOPHIL # 0.1 10^3/ul (0.0-0.1); BASOPHILS % 0.5 % (0.0-2.0); EOSINOPHILS # 0.4 10^3/ul (0.0-0.5); EOSINOPHILS % 2.6 % (0.0-7.0); HEMATOCRIT 29.6 % (37.0-47.0); HEMOGLOBIN 9.5 g/dl (12.0-16.0); LYMPHOCYTES # 4.2 10^3/ul (0.8-2.9); LYMPHOCYTES % 28.1 % (15.0-51.0); MEAN CORPUSCULAR HEMOGLOBIN 30.3 pg (29.0-33.0); MEAN CORPUSCULAR HGB CONC 32.1 g/dl (32.0-37.0); MEAN CORPUSCULAR VOLUME 94.3 fl (82.0-101.0); MONOCYTE # 1.9 10^3/ul (0.3-0.9); MONOCYTES % 12.8 % (0.0-11.0); NEUTROPHIL # 8.3 10^3/ul (1.6-7.5); PLATELET COUNT 274 10^3/UL (140-415); RED BLOOD COUNT 3.14 10^6/ul (4.20-5.40); RED CELL DISTRIBUTION WIDTH 14.3 % (11.5-14.5)
[2017-12-26 06:35] LABS: WHITE BLOOD COUNT 15.1 10^3/ul (4.8-10.8)
[2017-12-26 06:51] LABS: POSITIVE DIFF @See below
[2017-12-26 06:57] LABS: ALBUMIN 3.1 g/dl (3.3-4.9); ANION GAP 10 (8-16); BLOOD UREA NITROGEN 25 mg/dl (7-20); CALCIUM 8.5 mg/dl (8.4-10.2); CARBON DIOXIDE 25 mmol/L (21-31); CHLORIDE 110 mmol/L (97-110); CREATININE 1.22 mg/dl (0.44-1.00); GLUCOSE 170 mg/dl (70-220); MAGNESIUM 1.4 mg/dl (1.7-2.5); PHOSPHORUS 3.6 mg/dl (2.5-4.9); POTASSIUM 5.3 mmol/L (3.5-5.1); SODIUM 140 mmol/L (135-144)
[2017-12-26] MEDS: INSULIN ASPART [NOVOLOG] 3 ML PEN SC ×7 (08:42→20:30)
[2017-12-26] MEDS: PREGABALIN 75 MG CAP PO ×2 (08:43→20:28)
[2017-12-26] MEDS: ASPIRIN 81 MG TAB PO (08:43)
[2017-12-26] MEDS: PRASUGREL HYDROCHLORIDE 10 MG TABLET PO (08:43)
[2017-12-26] MEDS: DOCUSATE SODIUM 100 MG CAP PO ×2 (08:44→20:27)
[2017-12-26] MEDS: MULTIVITAMINS THERAPEUTIC TAB PO (08:44)
[2017-12-26] MEDS: RANOLAZINE (SR) 500 MG TAB PO ×2 (08:44→20:27)
[2017-12-26] MEDS ORDERED: INSULIN REGULAR, HUMAN 100 UNIT/1 ML 3ML VIAL IVP (11:45)
[2017-12-26] MEDS ORDERED: DEXTROSE 50% 50 ML SYRINGE IV (12:00)
[2017-12-26] MEDS: MAGNESIUM OXIDE 400 MG TAB PO (12:51)
[2017-12-26] MEDS: predniSONE 20 MG TAB PO (12:51)
[2017-12-26] MEDS: LEVOFLOXACIN 250MG/D5W (PMX) 50 ML IVPB (12:51)
[2017-12-26] MEDS: ATORVASTATIN 40 MG TAB PO (20:27)
[2017-12-26] MEDS: EZETIMIBE 10 MG TAB PO (20:27)
[2017-12-26] MEDS: INSULIN GLARGINE [LANtus] 3 ML PEN SC (20:29)
[2017-12-27] MEDS: PANTOPRAZOLE (EC) 40 MG TAB PO (05:15)
[2017-12-27 05:30] LABS: ADD MAN DIFF? NO
[2017-12-27 05:36] LABS: ABNORMAL IP MESSAGE 1; BASOPHILS % 0.2 % (0.0-2.0); HEMATOCRIT 28.1 % (37.0-47.0); HEMOGLOBIN 9.1 g/dl (12.0-16.0); LYMPHOCYTES # 2.4 10^3/ul (0.8-2.9); LYMPHOCYTES % 12.4 % (15.0-51.0); MEAN CORPUSCULAR HEMOGLOBIN 30.6 pg (29.0-33.0); MEAN CORPUSCULAR HGB CONC 32.4 g/dl (32.0-37.0); MEAN CORPUSCULAR VOLUME 94.6 fl (82.0-101.0); MEAN PLATELET VOLUME 10.7 fl (7.4-10.4); MONOCYTE # 1.8 10^3/ul (0.3-0.9); MONOCYTES % 9.3 % (0.0-11.0); NEUTROPHIL # 15.1 10^3/ul (1.6-7.5); PLATELET COUNT 312 10^3/UL (140-415); RED BLOOD COUNT 2.97 10^6/ul (4.20-5.40); RED CELL DISTRIBUTION WIDTH 13.9 % (11.5-14.5)
[2017-12-27 05:36] LABS: WHITE BLOOD COUNT 19.6 10^3/ul (4.8-10.8)
[2017-12-27 05:54] LABS: POSITIVE DIFF @See below
[2017-12-27 06:05] LABS: ALBUMIN 3.1 g/dl (3.3-4.9); ANION GAP 10 (8-16); BLOOD UREA NITROGEN 29 mg/dl (7-20); CALCIUM 8.2 mg/dl (8.4-10.2); CARBON DIOXIDE 24 mmol/L (21-31); CHLORIDE 111 mmol/L (97-110); CREATININE 1.52 mg/dl (0.44-1.00); GLUCOSE 234 mg/dl (70-220); MAGNESIUM 1.6 mg/dl (1.7-2.5); PHOSPHORUS 2.8 mg/dl (2.5-4.9); SODIUM 140 mmol/L (135-144)
[2017-12-27] MEDS: INSULIN ASPART [NOVOLOG] 3 ML PEN SC ×8 (08:33→20:43)
[2017-12-27] MEDS: DOCUSATE SODIUM 100 MG CAP PO ×2 (08:35→20:42)
[2017-12-27] MEDS: PREGABALIN 75 MG CAP PO ×2 (08:35→20:57)
[2017-12-27] MEDS: predniSONE 20 MG TAB PO (08:35)
[2017-12-27] MEDS: PRASUGREL HYDROCHLORIDE 10 MG TABLET PO (08:35)
[2017-12-27] MEDS: ASPIRIN 81 MG TAB PO (08:35)
[2017-12-27] MEDS: RANOLAZINE (SR) 500 MG TAB PO ×2 (08:35→20:39)
[2017-12-27] MEDS: MULTIVITAMINS THERAPEUTIC TAB PO (08:35)
[2017-12-27] MEDS: MAGNESIUM OXIDE 400 MG TAB PO (11:12)
[2017-12-27] MEDS: LEVOFLOXACIN 250MG/D5W (PMX) 50 ML IVPB (12:57)
[2017-12-27] MEDS: ATORVASTATIN 40 MG TAB PO (20:39)
[2017-12-27] MEDS: EZETIMIBE 10 MG TAB PO (20:47)
[2017-12-27] MEDS: INSULIN GLARGINE [LANtus] 3 ML PEN SC (20:47)
[2017-12-28] MEDS: INSULIN ASPART [NOVOLOG] 3 ML PEN SC ×8 (02:34→21:41)
[2017-12-28] MEDS: PANTOPRAZOLE (EC) 40 MG TAB PO (05:51)
[2017-12-28 07:02] LABS: ADD MAN DIFF? NO
[2017-12-28 07:06] LABS: ABNORMAL IP MESSAGE 1; BASOPHILS % 0.1 % (0.0-2.0); EOSINOPHILS % 0.1 % (0.0-7.0); HEMATOCRIT 26.1 % (37.0-47.0); HEMOGLOBIN 8.3 g/dl (12.0-16.0); LYMPHOCYTES # 4.6 10^3/ul (0.8-2.9); LYMPHOCYTES % 21.6 % (15.0-51.0); MEAN CORPUSCULAR HEMOGLOBIN 30.4 pg (29.0-33.0); MEAN CORPUSCULAR HGB CONC 31.8 g/dl (32.0-37.0); MEAN CORPUSCULAR VOLUME 95.6 fl (82.0-101.0); MEAN PLATELET VOLUME 10.7 fl (7.4-10.4); MONOCYTE # 2.1 10^3/ul (0.3-0.9); MONOCYTES % 9.5 % (0.0-11.0); NEUTROPHIL # 14.3 10^3/ul (1.6-7.5); NEUTROPHILS % 66.7 % (39.0-77.0); PLATELET COUNT 352 10^3/UL (140-415); RED BLOOD COUNT 2.73 10^6/ul (4.20-5.40); RED CELL DISTRIBUTION WIDTH 14.1 % (11.5-14.5)
[2017-12-28 07:06] LABS: WHITE BLOOD COUNT 21.5 10^3/ul (4.8-10.8)
[2017-12-28 07:32] LABS: ALBUMIN 2.9 g/dl (3.3-4.9); ANION GAP 11 (8-16); BLOOD UREA NITROGEN 40 mg/dl (7-20); CALCIUM 7.9 mg/dl (8.4-10.2); CARBON DIOXIDE 23 mmol/L (21-31); CHLORIDE 110 mmol/L (97-110); CREATININE 1.25 mg/dl (0.44-1.00); GLUCOSE 254 mg/dl (70-220); MAGNESIUM 1.6 mg/dl (1.7-2.5); PHOSPHORUS 2.6 mg/dl (2.5-4.9); POTASSIUM 4.4 mmol/L (3.5-5.1); SODIUM 140 mmol/L (135-144)
[2017-12-28] MEDS: PRASUGREL HYDROCHLORIDE 10 MG TABLET PO (08:45)
[2017-12-28] MEDS: RANOLAZINE (SR) 500 MG TAB PO ×2 (08:45→21:35)
[2017-12-28] MEDS: PREGABALIN 75 MG CAP PO ×2 (08:45→21:00)
[2017-12-28] MEDS: ASPIRIN 81 MG TAB PO (08:45)
[2017-12-28] MEDS: DOCUSATE SODIUM 100 MG CAP PO ×2 (08:45→21:36)
[2017-12-28] MEDS: predniSONE 20 MG TAB PO (08:45)
[2017-12-28] MEDS: MULTIVITAMINS THERAPEUTIC TAB PO (08:45)
[2017-12-28] MEDS: MAGNESIUM SULFATE 2 GM/50 ML 50 ML IVPB (11:30)
[2017-12-28] MEDS: LEVOFLOXACIN 250MG/D5W (PMX) 50 ML IVPB (13:58)
[2017-12-28] MEDS: EZETIMIBE 10 MG TAB PO (21:35)
[2017-12-28] MEDS: ATORVASTATIN 40 MG TAB PO (21:37)
[2017-12-28] MEDS: INSULIN GLARGINE [LANtus] 3 ML PEN SC (21:40)
[2017-12-29] MEDS: PANTOPRAZOLE (EC) 40 MG TAB PO (05:24)
[2017-12-29 06:30] LABS: ADD MAN DIFF? NO
[2017-12-29 06:41] LABS: ABNORMAL IP MESSAGE 1; BASOPHILS % 0.1 % (0.0-2.0); EOSINOPHILS # 0.1 10^3/ul (0.0-0.5); EOSINOPHILS % 0.4 % (0.0-7.0); HEMATOCRIT 20.2 % (37.0-47.0); LYMPHOCYTES # 5.3 10^3/ul (0.8-2.9); LYMPHOCYTES % 25.4 % (15.0-51.0); MEAN CORPUSCULAR HEMOGLOBIN 31.1 pg (29.0-33.0); MEAN CORPUSCULAR HGB CONC 32.2 g/dl (32.0-37.0); MEAN CORPUSCULAR VOLUME 96.7 fl (82.0-101.0); MEAN PLATELET VOLUME 10.6 fl (7.4-10.4); MONOCYTE # 1.7 10^3/ul (0.3-0.9); MONOCYTES % 7.9 % (0.0-11.0); NEUTROPHIL # 13.6 10^3/ul (1.6-7.5); NEUTROPHILS % 64.7 % (39.0-77.0); PLATELET COUNT 324 10^3/UL (140-415); RED BLOOD COUNT 2.09 10^6/ul (4.20-5.40)
[2017-12-29 06:41] LABS: WHITE BLOOD COUNT 21.1 10^3/ul (4.8-10.8)
[2017-12-29 07:11] LABS: HEMOGLOBIN 6.5 g/dl (12.0-16.0)
[2017-12-29 07:20] LABS: ANION GAP 12 (8-16); BLOOD UREA NITROGEN 48 mg/dl (7-20); CALCIUM 7.3 mg/dl (8.4-10.2); CARBON DIOXIDE 22 mmol/L (21-31); CHLORIDE 112 mmol/L (97-110); GLUCOSE 140 mg/dl (70-220); MAGNESIUM 2.1 mg/dl (1.7-2.5); POTASSIUM 5.1 mmol/L (3.5-5.1); SODIUM 141 mmol/L (135-144)
[2017-12-29] MEDS: ASPIRIN 81 MG TAB PO (08:23)
[2017-12-29] MEDS: predniSONE 20 MG TAB PO (08:23)
[2017-12-29] MEDS: PREGABALIN 75 MG CAP PO ×2 (08:23→21:00)
[2017-12-29] MEDS: MULTIVITAMINS THERAPEUTIC TAB PO (08:24)
[2017-12-29] MEDS: RANOLAZINE (SR) 500 MG TAB PO ×2 (08:24→21:35)
[2017-12-29] MEDS: PRASUGREL HYDROCHLORIDE 10 MG TABLET PO (08:24)
[2017-12-29] MEDS: DOCUSATE SODIUM 100 MG CAP PO ×2 (08:25→21:00)
[2017-12-29] MEDS: INSULIN ASPART [NOVOLOG] 3 ML PEN SC ×7 (08:26→21:38)
[2017-12-29 10:31] LABS: HEMATOCRIT 19.7 % (37.0-47.0)
[2017-12-29 10:39] LABS: HEMOGLOBIN 6.2 g/dl (12.0-16.0)
[2017-12-29] MEDS ORDERED: PRAMOXINE 1% 15 GM RECT FOAM PR (13:00)
[2017-12-29] MEDS: LEVOFLOXACIN 250MG/D5W (PMX) 50 ML IVPB (14:14)
[2017-12-29 14:34] LABS: ADD MAN DIFF? NO
[2017-12-29 14:37] LABS: WHITE BLOOD COUNT 17.8 10^3/ul (4.8-10.8)
[2017-12-29 14:37] LABS: ABNORMAL IP MESSAGE 1; BASOPHILS % 0.2 % (0.0-2.0); EOSINOPHILS # 0.1 10^3/ul (0.0-0.5); EOSINOPHILS % 0.6 % (0.0-7.0); LYMPHOCYTES # 2.6 10^3/ul (0.8-2.9); LYMPHOCYTES % 14.4 % (15.0-51.0); MEAN CORPUSCULAR HGB CONC 32.2 g/dl (32.0-37.0); MEAN CORPUSCULAR VOLUME 96.3 fl (82.0-101.0); MEAN PLATELET VOLUME 10.8 fl (7.4-10.4); MONOCYTE # 0.6 10^3/ul (0.3-0.9); MONOCYTES % 3.4 % (0.0-11.0); NEUTROPHIL # 14.3 10^3/ul (1.6-7.5); NEUTROPHILS % 79.9 % (39.0-77.0); PLATELET COUNT 328 10^3/UL (140-415); RED BLOOD COUNT 1.87 10^6/ul (4.20-5.40); RED CELL DISTRIBUTION WIDTH 14.1 % (11.5-14.5)
[2017-12-29 14:42] LABS: HEMOGLOBIN 5.8 g/dl (12.0-16.0)
[2017-12-29 14:43] LABS: PATH REVIEW? YES
[2017-12-29] MEDS: EZETIMIBE 10 MG TAB PO (21:35)
[2017-12-29] MEDS: ATORVASTATIN 40 MG TAB PO (21:35)
[2017-12-29] MEDS: PRAMOXINE/HC 10 GM RECT FOAM PR (21:36)
[2017-12-29] MEDS: INSULIN GLARGINE [LANtus] 3 ML PEN SC (21:38)
[2017-12-29 23:05] LABS: GLUCOSE 386 mg/dl (70-220)
[2017-12-29] MEDS ORDERED: INSULIN REGULAR, HUMAN 100 UNIT/1 ML 3ML VIAL SC (23:30)
[2017-12-30] MEDS: INSULIN ASPART [NOVOLOG] 3 ML PEN SC ×9 (01:10→21:57)
[2017-12-30 02:00] LABS: ADD MAN DIFF? NO
[2017-12-30 02:02] LABS: ABNORMAL IP MESSAGE 1; BASOPHIL # 0.1 10^3/ul (0.0-0.1); BASOPHILS % 0.2 % (0.0-2.0); EOSINOPHILS % 0.1 % (0.0-7.0); HEMATOCRIT 24.2 % (37.0-47.0); LYMPHOCYTES # 6.1 10^3/ul (0.8-2.9); LYMPHOCYTES % 26.8 % (15.0-51.0); MEAN CORPUSCULAR HEMOGLOBIN 29.1 pg (29.0-33.0); MEAN CORPUSCULAR HGB CONC 33.1 g/dl (32.0-37.0); MEAN PLATELET VOLUME 10.6 fl (7.4-10.4); MONOCYTE # 2.2 10^3/ul (0.3-0.9); MONOCYTES % 9.4 % (0.0-11.0); NEUTROPHIL # 14.2 10^3/ul (1.6-7.5); NEUTROPHILS % 61.8 % (39.0-77.0); NUCLEATED RED BLOOD CELLS% 0.1 /100WBC (0.0-0.0); PLATELET COUNT 301 10^3/UL (140-415); RED BLOOD COUNT 2.75 10^6/ul (4.20-5.40); RED CELL DISTRIBUTION WIDTH 16.2 % (11.5-14.5)
[2017-12-30 02:02] LABS: WHITE BLOOD COUNT 22.9 10^3/ul (4.8-10.8)
[2017-12-30 02:28] LABS: POSITIVE DIFF @See below
[2017-12-30 02:35] LABS: ANION GAP 11 (8-16); BLOOD UREA NITROGEN 58 mg/dl (7-20); CALCIUM 6.9 mg/dl (8.4-10.2); CARBON DIOXIDE 19 mmol/L (21-31); CHLORIDE 111 mmol/L (97-110); CREATININE 1.54 mg/dl (0.44-1.00); GLUCOSE 249 mg/dl (70-220); POTASSIUM 5.3 mmol/L (3.5-5.1); SODIUM 136 mmol/L (135-144)
[2017-12-30] MEDS: predniSONE 20 MG TAB PO (08:14)
[2017-12-30] MEDS: PRAMOXINE/HC 10 GM RECT FOAM PR ×3 (08:14→21:45)
[2017-12-30] MEDS: MULTIVITAMINS THERAPEUTIC TAB PO (08:14)
[2017-12-30] MEDS: DOCUSATE SODIUM 100 MG CAP PO ×2 (08:14→21:00)
[2017-12-30] MEDS: MAGNESIUM HYDROXIDE 30ML CUP PO (08:14)
[2017-12-30] MEDS: PRASUGREL HYDROCHLORIDE 10 MG TABLET PO (08:15)
[2017-12-30] MEDS: PREGABALIN 75 MG CAP PO ×2 (08:15→21:00)
[2017-12-30] MEDS: RANOLAZINE (SR) 500 MG TAB PO ×2 (08:15→21:47)
[2017-12-30] MEDS: ASPIRIN 81 MG TAB PO ×2 (08:15→09:00)
[2017-12-30] MEDS: LEVOFLOXACIN 250MG/D5W (PMX) 50 ML IVPB (12:23)
[2017-12-30 17:39] LABS: HEMATOCRIT 20.2 % (37.0-47.0)
[2017-12-30 17:45] LABS: HEMOGLOBIN 6.6 g/dl (12.0-16.0)
[2017-12-30 17:58] LABS: GLUCOSE 398 mg/dl (70-220)
[2017-12-30] MEDS ORDERED: INSULIN ASPART [NOVOLOG] 3 ML PEN SC (18:00)
[2017-12-30] MEDS ORDERED: INSULIN REGULAR, HUMAN 100 UNIT/1 ML 3ML VIAL SC (18:30)
[2017-12-30] MEDS: EZETIMIBE 10 MG TAB PO (21:46)
[2017-12-30] MEDS: ATORVASTATIN 40 MG TAB PO (21:46)
[2017-12-30] MEDS: INSULIN GLARGINE [LANtus] 3 ML PEN SC (21:54)
[2017-12-31 01:02] LABS: IMMEDIATE SPIN CROSSMATCH 1 4
[2017-12-31] MEDS: LEVOFLOXACIN 250 MG TAB PO (05:31)
[2017-12-31 05:46] LABS: ABNORMAL IP MESSAGE 1; ADD MAN DIFF? NO; BASOPHIL # 0.1 10^3/ul (0.0-0.1); BASOPHILS % 0.2 % (0.0-2.0); EOSINOPHILS # 0.1 10^3/ul (0.0-0.5); EOSINOPHILS % 0.5 % (0.0-7.0); HEMATOCRIT 25.8 % (37.0-47.0); HEMOGLOBIN 8.7 g/dl (12.0-16.0); LYMPHOCYTES # 6.6 10^3/ul (0.8-2.9); LYMPHOCYTES % 25.9 % (15.0-51.0); MEAN CORPUSCULAR HEMOGLOBIN 29.6 pg (29.0-33.0); MEAN CORPUSCULAR HGB CONC 33.7 g/dl (32.0-37.0); MEAN CORPUSCULAR VOLUME 87.8 fl (82.0-101.0); MEAN PLATELET VOLUME 10.5 fl (7.4-10.4); MONOCYTE # 1.8 10^3/ul (0.3-0.9); MONOCYTES % 7.2 % (0.0-11.0); NEUTROPHIL # 16.1 10^3/ul (1.6-7.5); NEUTROPHILS % 63.3 % (39.0-77.0); NUCLEATED RED BLOOD CELLS # 0.2 10^3/ul (0.0-0.0); NUCLEATED RED BLOOD CELLS% 0.9 /100WBC (0.0-0.0); PLATELET COUNT 288 10^3/UL (140-415); RED BLOOD COUNT 2.94 10^6/ul (4.20-5.40); RED CELL DISTRIBUTION WIDTH 15.5 % (11.5-14.5)
[2017-12-31 05:46] LABS: WHITE BLOOD COUNT 25.5 10^3/ul (4.8-10.8)
[2017-12-31 05:53] LABS: POSITIVE DIFF @See below
[2017-12-31 06:35] LABS: ANION GAP 9 (8-16); BLOOD UREA NITROGEN 46 mg/dl (7-20); CARBON DIOXIDE 22 mmol/L (21-31); CHLORIDE 113 mmol/L (97-110); CREATININE 1.16 mg/dl (0.44-1.00); GLUCOSE 105 mg/dl (70-220); MAGNESIUM 1.8 mg/dl (1.7-2.5); PHOSPHORUS 3.2 mg/dl (2.5-4.9); POTASSIUM 4.5 mmol/L (3.5-5.1); SODIUM 139 mmol/L (135-144)
[2017-12-31] MEDS: INSULIN ASPART [NOVOLOG] 3 ML PEN SC ×7 (08:00→21:00)
[2017-12-31] MEDS: MULTIVITAMINS THERAPEUTIC TAB PO (08:28)
[2017-12-31] MEDS: RANOLAZINE (SR) 500 MG TAB PO ×3 (08:28→21:00)
[2017-12-31] MEDS: PRASUGREL HYDROCHLORIDE 10 MG TABLET PO (08:28)
[2017-12-31] MEDS: PREGABALIN 75 MG CAP PO ×2 (08:31→20:59)
[2017-12-31] MEDS: MAGNESIUM HYDROXIDE 30ML CUP PO (08:31)
[2017-12-31] MEDS: ASPIRIN 81 MG TAB PO (08:31)
[2017-12-31] MEDS: DOCUSATE SODIUM 100 MG CAP PO ×2 (08:31→20:58)
[2017-12-31] MEDS: PRAMOXINE/HC 10 GM RECT FOAM PR ×4 (08:32→21:00)
[2017-12-31] MEDS: BISACODYL (EC) 5 MG TAB PO (12:41)
[2017-12-31 14:53] LABS: B-TYPE NATRIURETIC PEPTIDE 426 PG/ML (0-125)
[2017-12-31] MEDS: POLYETHYLENE GLYCOL 3350 119 GM POWDER PO (17:41)
[2017-12-31 19:35] LABS: TROPONIN-I < 0.010 ng/ml (0.000-0.120)
[2017-12-31] MEDS: INSULIN GLARGINE [LANTus] (100 UNITS/ML) SYG SC (20:00)
[2017-12-31] MEDS: MAGNESIUM CITRATE 300 ML BTL PO (20:49)
[2017-12-31] MEDS: EZETIMIBE 10 MG TAB PO (20:59)
[2017-12-31] MEDS: ATORVASTATIN 40 MG TAB PO (20:59)
[2018-01-01] MEDS: INSULIN ASPART [NOVOLOG] 3 ML PEN SC ×8 (01:00→17:35)
[2018-01-01 01:26] LABS: TROPONIN-I < 0.010 ng/ml (0.000-0.120)
[2018-01-01] MEDS: POLYETHYLENE GLYCOL 3350 119 GM POWDER PO (05:34)
[2018-01-01] MEDS: BISACODYL (EC) 5 MG TAB PO (05:35)
[2018-01-01] MEDS: LEVOFLOXACIN 250 MG TAB PO (05:39)
[2018-01-01 06:34] LABS: ADD MAN DIFF? NO
[2018-01-01 06:46] LABS: BASOPHIL # 0.1 10^3/ul (0.0-0.1); BASOPHILS % 0.4 % (0.0-2.0); EOSINOPHILS # 0.7 10^3/ul (0.0-0.5); EOSINOPHILS % 3.4 % (0.0-7.0); HEMATOCRIT 29.2 % (37.0-47.0); HEMOGLOBIN 9.7 g/dl (12.0-16.0); LYMPHOCYTES % 25.5 % (15.0-51.0); MEAN CORPUSCULAR HEMOGLOBIN 29.6 pg (29.0-33.0); MEAN CORPUSCULAR HGB CONC 33.2 g/dl (32.0-37.0); MEAN PLATELET VOLUME 10.3 fl (7.4-10.4); MONOCYTE # 1.3 10^3/ul (0.3-0.9); MONOCYTES % 6.7 % (0.0-11.0); NEUTROPHIL # 12.1 10^3/ul (1.6-7.5); NEUTROPHILS % 62.2 % (39.0-77.0); NUCLEATED RED BLOOD CELLS # 0.2 10^3/ul (0.0-0.0); NUCLEATED RED BLOOD CELLS% 1.1 /100WBC (0.0-0.0); RED BLOOD COUNT 3.28 10^6/ul (4.20-5.40); RED CELL DISTRIBUTION WIDTH 16.2 % (11.5-14.5)
[2018-01-01 06:46] LABS: WHITE BLOOD COUNT 19.5 10^3/ul (4.8-10.8)
[2018-01-01 06:59] LABS: PLATELET COUNT 378 10^3/UL (140-415); POSITIVE DIFF @See below
[2018-01-01] MEDS ORDERED: LIDOCAINE 2% (SDV) 5 ML INJ (07:00)
[2018-01-01] MEDS ORDERED: PROPOFOL 200 MG INJ (07:00)
[2018-01-01 07:11] LABS: ALBUMIN 2.8 g/dl (3.3-4.9); ANION GAP 10 (8-16); BLOOD UREA NITROGEN 31 mg/dl (7-20); CALCIUM 7.5 mg/dl (8.4-10.2); CARBON DIOXIDE 23 mmol/L (21-31); CHLORIDE 113 mmol/L (97-110); CREATININE 1.04 mg/dl (0.44-1.00); GLUCOSE 88 mg/dl (70-220); MAGNESIUM 1.9 mg/dl (1.7-2.5); PHOSPHORUS 3.4 mg/dl (2.5-4.9); POTASSIUM 4.4 mmol/L (3.5-5.1); SODIUM 142 mmol/L (135-144)
[2018-01-01 07:20] LABS: TROPONIN-I < 0.010 ng/ml (0.000-0.120)
[2018-01-01] MEDS: MULTIVITAMINS THERAPEUTIC TAB PO (09:00)
[2018-01-01] MEDS: RANOLAZINE (SR) 500 MG TAB PO ×2 (09:00→21:00)
[2018-01-01] MEDS: PRASUGREL HYDROCHLORIDE 10 MG TABLET PO (09:00)
[2018-01-01] MEDS: SOD CHLORIDE 0.45% 1,000 ML IV ×2 (09:07→23:18)
[2018-01-01] MEDS: PRAMOXINE/HC 10 GM RECT FOAM PR ×3 (09:09→21:00)
[2018-01-01] MEDS: MAGNESIUM HYDROXIDE 30ML CUP PO (09:11)
[2018-01-01] MEDS: DOCUSATE SODIUM 100 MG CAP PO ×2 (09:11→21:00)
[2018-01-01] MEDS: PREGABALIN 75 MG CAP PO ×2 (09:13→21:00)
[2018-01-01] MEDS: REGADENOSON 0.4 MG/5 ML SYG (12:53)
[2018-01-01 18:53] LABS: TROPONIN-I < 0.010 ng/ml (0.000-0.120)
[2018-01-01] MEDS: ATORVASTATIN 40 MG TAB PO (21:00)
[2018-01-01] MEDS: EZETIMIBE 10 MG TAB PO (21:00)
[2018-01-01] MEDS: INSULIN GLARGINE [LANTus] (100 UNITS/ML) SYG SC (22:51)
[2018-01-02 01:39] LABS: TROPONIN-I 0.011 ng/ml (0.000-0.120)
[2018-01-02] MEDS: ACCU-CHEK XX (02:00)
[2018-01-02] MEDS: LEVOFLOXACIN 250 MG TAB PO (05:49)
[2018-01-02 06:33] LABS: ADD MAN DIFF? NO
[2018-01-02 06:40] LABS: BASOPHIL # 0.1 10^3/ul (0.0-0.1); BASOPHILS % 0.4 % (0.0-2.0); EOSINOPHILS # 0.5 10^3/ul (0.0-0.5); EOSINOPHILS % 3.3 % (0.0-7.0); HEMOGLOBIN 8.8 g/dl (12.0-16.0); LYMPHOCYTES # 3.3 10^3/ul (0.8-2.9); LYMPHOCYTES % 22.4 % (15.0-51.0); MEAN CORPUSCULAR HEMOGLOBIN 29.7 pg (29.0-33.0); MEAN CORPUSCULAR HGB CONC 32.6 g/dl (32.0-37.0); MEAN CORPUSCULAR VOLUME 91.2 fl (82.0-101.0); MEAN PLATELET VOLUME 9.9 fl (7.4-10.4); MONOCYTE # 1.2 10^3/ul (0.3-0.9); MONOCYTES % 7.8 % (0.0-11.0); NEUTROPHIL # 9.7 10^3/ul (1.6-7.5); NEUTROPHILS % 64.9 % (39.0-77.0); NUCLEATED RED BLOOD CELLS% 0.2 /100WBC (0.0-0.0); PLATELET COUNT 424 10^3/UL (140-415); RED BLOOD COUNT 2.96 10^6/ul (4.20-5.40); RED CELL DISTRIBUTION WIDTH 17.3 % (11.5-14.5)
[2018-01-02 06:40] LABS: WHITE BLOOD COUNT 14.9 10^3/ul (4.8-10.8)
[2018-01-02 07:09] LABS: ALBUMIN 2.6 g/dl (3.3-4.9); ANION GAP 11 (8-16); BLOOD UREA NITROGEN 17 mg/dl (7-20); CALCIUM 6.9 mg/dl (8.4-10.2); CARBON DIOXIDE 24 mmol/L (21-31); CHLORIDE 111 mmol/L (97-110); GLUCOSE 93 mg/dl (70-220); MAGNESIUM 1.7 mg/dl (1.7-2.5); POTASSIUM 4.1 mmol/L (3.5-5.1); SODIUM 142 mmol/L (135-144)
[2018-01-02] MEDS ORDERED: INSULIN ASPART [NOVOLOG] 3 ML PEN SC (08:00)
[2018-01-02] MEDS: ONDANSETRON 4 MG INJ IV (08:11)
[2018-01-02] MEDS: MAGNESIUM HYDROXIDE 30ML CUP PO (08:12)
[2018-01-02] MEDS: DOCUSATE SODIUM 100 MG CAP PO ×2 (08:12→21:33)
[2018-01-02] MEDS: INSULIN ASPART [NOVOLOG] 3 ML PEN SC ×5 (08:13→21:45)
[2018-01-02] MEDS: PRAMOXINE/HC 10 GM RECT FOAM PR ×3 (08:17→21:00)
[2018-01-02] MEDS: PREGABALIN 75 MG CAP PO ×2 (08:18→21:00)
[2018-01-02] MEDS: MULTIVITAMINS THERAPEUTIC TAB PO (08:18)
[2018-01-02] MEDS: RANOLAZINE (SR) 500 MG TAB PO ×2 (08:18→21:34)
[2018-01-02] MEDS: PRASUGREL HYDROCHLORIDE 10 MG TABLET PO (08:18)
[2018-01-02] MEDS: ATORVASTATIN 40 MG TAB PO (21:33)
[2018-01-02] MEDS: EZETIMIBE 10 MG TAB PO (21:33)
[2018-01-02] MEDS: INSULIN GLARGINE [LANTus] (100 UNITS/ML) SYG SC (21:36)
[2018-01-03] MEDS: ACCU-CHEK XX (02:00)
[2018-01-03] MEDS: LEVOFLOXACIN 250 MG TAB PO (05:59)
[2018-01-03 06:40] LABS: ADD MAN DIFF? NO
[2018-01-03 06:42] LABS: WHITE BLOOD COUNT 11.8 10^3/ul (4.8-10.8)
[2018-01-03 06:42] LABS: BASOPHIL # 0.1 10^3/ul (0.0-0.1); BASOPHILS % 0.5 % (0.0-2.0); EOSINOPHILS # 0.5 10^3/ul (0.0-0.5); EOSINOPHILS % 4.2 % (0.0-7.0); HEMATOCRIT 27.1 % (37.0-47.0); HEMOGLOBIN 8.7 g/dl (12.0-16.0); LYMPHOCYTES # 3.5 10^3/ul (0.8-2.9); LYMPHOCYTES % 29.6 % (15.0-51.0); MEAN CORPUSCULAR HEMOGLOBIN 29.6 pg (29.0-33.0); MEAN CORPUSCULAR HGB CONC 32.1 g/dl (32.0-37.0); MEAN CORPUSCULAR VOLUME 92.2 fl (82.0-101.0); MEAN PLATELET VOLUME 9.9 fl (7.4-10.4); MONOCYTE # 1.3 10^3/ul (0.3-0.9); MONOCYTES % 11.4 % (0.0-11.0); NEUTROPHIL # 6.3 10^3/ul (1.6-7.5); NEUTROPHILS % 53.1 % (39.0-77.0); PLATELET COUNT 424 10^3/UL (140-415); RED BLOOD COUNT 2.94 10^6/ul (4.20-5.40)
[2018-01-03 07:15] LABS: ALBUMIN 2.6 g/dl (3.3-4.9); ANION GAP 11 (8-16); BLOOD UREA NITROGEN 16 mg/dl (7-20); CALCIUM 7.2 mg/dl (8.4-10.2); CARBON DIOXIDE 23 mmol/L (21-31); CHLORIDE 112 mmol/L (97-110); CREATININE 0.99 mg/dl (0.44-1.00); MAGNESIUM 1.7 mg/dl (1.7-2.5); PHOSPHORUS 3.2 mg/dl (2.5-4.9); POTASSIUM 4.4 mmol/L (3.5-5.1); SODIUM 142 mmol/L (135-144)
[2018-01-03 07:19] LABS: GLUCOSE 37 mg/dl (70-220)
[2018-01-03] MEDS: INSULIN ASPART [NOVOLOG] 3 ML PEN SC ×7 (08:00→20:41)
[2018-01-03] MEDS: PRAMOXINE/HC 10 GM RECT FOAM PR ×3 (08:21→20:41)
[2018-01-03] MEDS: PRASUGREL HYDROCHLORIDE 10 MG TABLET PO (08:22)
[2018-01-03] MEDS: RANOLAZINE (SR) 500 MG TAB PO ×2 (08:22→20:39)
[2018-01-03] MEDS: PREGABALIN 75 MG CAP PO ×2 (08:22→20:48)
[2018-01-03] MEDS: DOCUSATE SODIUM 100 MG CAP PO ×2 (08:23→20:38)
[2018-01-03] MEDS: MULTIVITAMINS THERAPEUTIC TAB PO (08:23)
[2018-01-03] MEDS: SOD CHLORIDE 0.9% 1,000 ML IV (11:51)
[2018-01-03] MEDS ORDERED: SOD CHLORIDE 0.9% 100 ML (17:12)
[2018-01-03] MEDS ORDERED: IODIXANOL LOCM 100 ML BTL (17:12)
[2018-01-03] MEDS ORDERED: IODIXANOL LOCM 50 ML BTL (17:13)
[2018-01-03] MEDS: INSULIN GLARGINE [LANTus] (100 UNITS/ML) SYG SC (20:38)
[2018-01-03] MEDS: ATORVASTATIN 40 MG TAB PO (20:39)
[2018-01-03] MEDS: MESALAMINE (EC) 400 MG CAP PO (20:39)
[2018-01-03] MEDS: EZETIMIBE 10 MG TAB PO (20:40)
[2018-01-03] MEDS: PENTOXIFYLLINE (SR) 400 MG TAB PO (20:50)
[2018-01-04] MEDS: ACCU-CHEK XX (02:00)
[2018-01-04] MEDS: INSULIN ASPART [NOVOLOG] 3 ML PEN SC ×4 (07:55→12:04)
[2018-01-04] MEDS: RANOLAZINE (SR) 500 MG TAB PO (08:11)
[2018-01-04] MEDS: MULTIVITAMINS THERAPEUTIC TAB PO (08:11)
[2018-01-04] MEDS: PENTOXIFYLLINE (SR) 400 MG TAB PO ×2 (08:11→12:04)
[2018-01-04] MEDS: MESALAMINE (EC) 400 MG CAP PO ×2 (08:11→12:04)
[2018-01-04] MEDS: DOCUSATE SODIUM 100 MG CAP PO (08:11)
[2018-01-04] MEDS: PRAMOXINE/HC 10 GM RECT FOAM PR (08:12)
[2018-01-04] MEDS: PREGABALIN 75 MG CAP PO (08:12)
[2018-01-04] MEDS: PRASUGREL HYDROCHLORIDE 10 MG TABLET PO (08:27)
[2018-01-04 12:34] LABS: ALBUMIN 2.9 g/dl (3.3-4.9); ANION GAP 10 (8-16); BLOOD UREA NITROGEN 15 mg/dl (7-20); CALCIUM 7.5 mg/dl (8.4-10.2); CARBON DIOXIDE 24 mmol/L (21-31); CHLORIDE 113 mmol/L (97-110); GLUCOSE 97 mg/dl (70-220); MAGNESIUM 1.6 mg/dl (1.7-2.5); PHOSPHORUS 2.2 mg/dl (2.5-4.9); POTASSIUM 4.6 mmol/L (3.5-5.1); SODIUM 142 mmol/L (135-144)
[2018-01-04] MEDS: MAGNESIUM OXIDE 400 MG TAB PO (13:53)
== END 2018-01-04 14:07 | disposition home health service (06) | DRG 637 ==
LOC: E/R 10:19 → PP2 12-23 11:12 → TEL 21:30
PROVIDERS: Internal Medicine
PROC: 0DBK8ZX Excision of Ascending Colon, Via Natural or Artificial Opening Endoscopic, Diagnostic (ICD-10-PCS; principal; 2018-01-01 13:30)
PROC: 30233N1 Transfusion of Nonautologous Red Blood Cells into Peripheral Vein, Percutaneous Approach (ICD-10-PCS; 2018-01-01 13:30)
DX: E11.649 Type 2 diabetes mellitus with hypoglycemia without coma (principal); G93.41 Metabolic encephalopathy; R65.11 Systemic inflammatory response syndrome (SIRS) of non-infectious origin with acute organ dysfunction; N39.0 Urinary tract infection, site not specified; K62.5 Hemorrhage of anus and rectum; E87.2 Acidosis; D62 Acute posthemorrhagic anemia; K63.3 Ulcer of intestine; K55.1 Chronic vascular disorders of intestine; N17.9 Acute kidney failure, unspecified; M06.9 Rheumatoid arthritis, unspecified; R68.0 Hypothermia, not associated with low environmental temperature; E11.42 Type 2 diabetes mellitus with diabetic polyneuropathy; J84.10 Pulmonary fibrosis, unspecified; I12.9 Hypertensive chronic kidney disease with stage 1 through stage 4 chronic kidney disease, or unspecified chronic kidney disease; N18.9 Chronic kidney disease, unspecified; E87.5 Hyperkalemia; E83.42 Hypomagnesemia; R20.0 Anesthesia of skin; I25.10 Atherosclerotic heart disease of native coronary artery without angina pectoris; I25.2 Old myocardial infarction; E78.5 Hyperlipidemia, unspecified; E11.65 Type 2 diabetes mellitus with hyperglycemia; Z79.4 Long term (current) use of insulin; Z95.5 Presence of coronary angioplasty implant and graft
CPT/HCPCS: 36415; 36430; 70450; 71045; 71250; 72125; 73200; 75635; 76775; 78452; 80048; 80053; 80069; 81001; 81003; 82043; 82550; 82553; 82947; 82962; 83036; 83605; 83735; 83880; 84100; 84132; 84155; 84300; 84443; 84484; 85014; 85018; 85025; 85610; 85730; 86850; 86900; 86901; 86920; 87040; 87086; 88305; 93005; 93017; 93306; 94640; 94664; 96374; 97110; 97116; 97162; 97165; 97530; 97535; 99285-25; G0378